=== PATIENT | female | born 1930 | race African-American/Black ===

== ENCOUNTER 2016-10-21 15:21 | Emergency (ER) | payer MEDICARE, MEDICAID ==
[~2016-10-21] VITALS: Ht 167.6 cm; Wt 59.0 kg
[~2016-10-21 15:21] MED LIST: ACET-2178 PO; AMIN30LI2 PO; BISA-81 PO; DOCU-138 PO; FERR-63 PO; LISI-604 PO; MAG-4 PO; MAGN400O4 PO; MEMA10TA11 PO; METH85CR TP; MULT-1146 PO; PROT40 PO; TRAM50TA3 PO
[2016-10-21] MEDS ORDERED: LEVETIRACETAM 500 MG in SODIUM CHLORIDE 0.9% 100 ML IV ONE (16:30)
[2016-10-21 16:52] LABS: BASOPHILS % 0.4 % (0.0-2.0); EOSINOPHILS % 1.3 % (0.0-5.0); HEMATOCRIT. 31.2 % (36.0-48.0); HEMOGLOBIN. 10.1 g/dL (12.0-16.0); MEAN CORPUSCULAR HEMOGLOBIN 28.3 pg (28.0-32.0); MEAN CORPUSCULAR VOLUME 87.6 fL (81.0-99.0); MEAN PLATELET VOLUME 7.5 fl (7.4-10.4); MONOCYTES % 12.8 % (2.0-8.0); NEUTROPHILS % 61.5 % (40.0-76.0); PLATELET 187 x1000/uL (130-400); RED BLOOD CELL COUNT 3.56 mill/uL (4.2-5.4); RED CELL DISTRIBUTION WIDTH 13.8 % (11.6-14.6)
[2016-10-21 16:54] LABS: PARTIAL THROMBOPLASTIN TIME 21.9 sec (24.0-34.0); PROTHROMBIN TIME 10.6 sec
[2016-10-21 17:03] LABS: CARBON DIOXIDE 23 mEq/L (21-32); CHLORIDE 106 mEq/L (98-107); TROPONIN I 0.03 ng/mL (0.00-0.04)
[2016-10-21] MEDS ORDERED: LEVETIRACETAM 500MG PREMIX 100 ML IV NR (18:00)
[2016-10-21 20:51] VITALS: BP 140/81
== END 2016-10-21 21:00 | disposition home or self-care (01) ==
LOC: ER 15:21
DX: G40.909 Epilepsy, unspecified, not intractable, without status epilepticus (principal); M19.90 Unspecified osteoarthritis, unspecified site; R51 Headache; K21.9 Gastro-esophageal reflux disease without esophagitis; N28.9 Disorder of kidney and ureter, unspecified; F03.90 Unspecified dementia, unspecified severity, without behavioral disturbance, psychotic disturbance, mood disturbance, and anxiety; Z86.73 Personal history of transient ischemic attack (TIA), and cerebral infarction without residual deficits; W06.XXXA Fall from bed, initial encounter; Y93.89 Activity, other specified; Y92.128 Other place in nursing home as the place of occurrence of the external cause
CPT/HCPCS: 36415; 70450; 71010; 80053; 83690; 84484; 85025; 85610; 85730; 93005; 96365; 99285; J1953; J7050

== ENCOUNTER 2018-05-16 17:39 | Inpatient (IN) | payer MEDICARE, MEDICAID ==
[~2018-05-16] VITALS: Ht 160 cm; Wt 57.6 kg
[~2018-05-16 17:39] MED LIST changes: -MAGN400O4 PO; -MEMA10TA11 PO; +MEMA10TA2 PO; +MOM PO
[2018-05-16 18:16] VITALS: BP 148/63
[2018-05-16 18:30] VITALS: BP 141/84
[2018-05-16] MEDS ORDERED: CLOP75TA33 MT (18:52)
[2018-05-16] MEDS ORDERED: LEVE250T2 MT (18:52)
[2018-05-16] MEDS ORDERED: [UNRECOGNIZED DRUG - CODE] PO (18:52)
[2018-05-16] MEDS ORDERED: FERR325T6 MT (18:52)
[2018-05-16] MEDS ORDERED: CHOL200010 MT (18:52)
[2018-05-16] MEDS ORDERED: METH85CR TP (18:52)
[2018-05-16] MEDS ORDERED: LISI2.5T47 MT (18:52)
[2018-05-16] MEDS ORDERED: FAMO20TA8 MT (18:52)
[2018-05-16] MEDS ORDERED: NA P230E RC (18:52)
[2018-05-16] MEDS ORDERED: TRAM50TA MT (18:52)
[2018-05-16] MEDS ORDERED: MOM MT (18:52)
[2018-05-16] MEDS ORDERED: DOCU-138 MT (18:52)
[2018-05-16] MEDS ORDERED: BISA10SU62 RC (18:52)
[2018-05-16] MEDS ORDERED: MEMA10TA2 MT (18:52)
[2018-05-16 20:00] VITALS: BP 122/69
[2018-05-16] MEDS ORDERED: HALOPERIDOL 2MG TABLET PO PRN (23:00)
[2018-05-16] MEDS: HALOPERIDOL LACTATE 5MG/ML VIAL IM PRN (23:05)
[2018-05-16] MEDS ORDERED: TRAMADOL HCL MT PRN (23:15)
[2018-05-16] MEDS ORDERED: MEDICATION NOT ON FORMULARY EA (Acetaminophen (Tylenol) 650 MG) PO PRN (23:15)
[2018-05-16] MEDS ORDERED: AMITRIPTYLINE 25MG TABLET PO PRN (23:15)
[2018-05-16 23:54] VITALS: BP 151/58
[2018-05-17] MEDS ORDERED: MAGNESIUM HYDROXIDE 400MG/5ML 30ML UDC PO PRN
[2018-05-17] MEDS ORDERED: NA PHOS,M-B/NA PHOS,DI-BA ENEMA 118ML PR ONE
[2018-05-17] MEDS ORDERED: BISACODYL 10MG SUPP PR PRN
[2018-05-17] MEDS ORDERED: ACETAMINOPHEN 325MG TABLET PO PRN (00:15)
[2018-05-17] MEDS ORDERED: NA PHOS,M-B/NA PHOS,DI-BA ENEMA 118ML PR PRN (00:30)
[2018-05-17] MEDS ORDERED: TRAMADOL 50MG TABLET PO PRN (00:30)
[2018-05-17] MEDS ORDERED: METHYL SALICYLATE/MENTHOL CREAM 85GM TOP PRN (01:00)
[2018-05-17] MEDS: AMITRIPTYLINE 25MG TABLET PO SCH ×2 (01:10→21:56)
[2018-05-17] MEDS: LISINOPRIL 20MG TABLET PO SCH ×2 (01:10→08:51)
[2018-05-17] MEDS: LEVETIRACETAM 250MG TABLET PO SCH ×3 (01:11→17:52)
[2018-05-17] MEDS ORDERED: ONDANSETRON HCL 4MG/2ML INJ IV PRN (02:15)
[2018-05-17] MEDS ORDERED: IPRATROPIUM/ALBUTEROL 0.5-3(2.5)MG/3ML NEB INH PRN (02:15)
[2018-05-17] MEDS ORDERED: DIPHENHYDRAMINE 50MG/ML VIAL IV PRN (02:15)
[2018-05-17] MEDS ORDERED: MAGNESIUM/ALUMINUM HYDROXIDE/SIMETHICONE 30ML UDC PO PRN (02:15)
[2018-05-17] MEDS ORDERED: GUAIFENESIN 200MG/10ML SUGAR FREE UDC PO PRN (02:15)
[2018-05-17] MEDS ORDERED: DEXT 5%/0.45% NACL 1000ML 1,000 ML IV SCH (03:00)
[2018-05-17 04:00] VITALS: BP 93/47
[2018-05-17] MEDS: PANTOPRAZOLE 40MG DR TABLET PO SCH ×2 (06:50→08:47)
[2018-05-17 08:00] VITALS: BP 121/43
[2018-05-17] MEDS: MULTIVITAMINS,THER W-MINERALS TABLET PO SCH (08:46)
[2018-05-17] MEDS: FERROUS SULFATE 325MG TABLET PO SCH (08:46)
[2018-05-17] MEDS: CLOPIDOGREL 75MG TABLET PO SCH (08:47)
[2018-05-17] MEDS: MEMANTINE HCL 10MG TABLET PO SCH (08:47)
[2018-05-17] MEDS: CHOLECALCIFEROL (D3) 1000 UNIT TABLET PO SCH (08:47)
[2018-05-17] MEDS: DOCUSATE SODIUM 100MG CAPSULE PO SCH (08:47)
[2018-05-17] MEDS ORDERED: MEDICATION NOT ON FORMULARY EA (Clopidogrel Bisulfate (Clopidogrel) 1 TAB) MT SCH (09:00)
[2018-05-17] MEDS ORDERED: FERROUS SULFATE 325MG TABLET PO SCH (09:00)
[2018-05-17] MEDS ORDERED: MEDICATION NOT ON FORMULARY EA (Pantoprazole Sodium (Protonix) 40 MG) PO SCH (09:00)
[2018-05-17] MEDS ORDERED: MEDICATION NOT ON FORMULARY EA (Ferrous Sulfate 1 TAB) MT SCH (09:00)
[2018-05-17] MEDS ORDERED: MEDICATION NOT ON FORMULARY EA (Cholecalciferol (Vitamin D3) (Vitamin D3) 1 CAP) MT SCH (09:00)
[2018-05-17] MEDS ORDERED: MEDICATION NOT ON FORMULARY EA (Docusate Sodium (Colace) 1 CAP) MT SCH (09:00)
[2018-05-17] MEDS ORDERED: MEDICATION NOT ON FORMULARY EA (Lisinopril 20 MG) PO SCH (09:00)
[2018-05-17] MEDS ORDERED: MEDICATION NOT ON FORMULARY EA (Multivitamin (Multi Vitamin Daily) 1 TAB) PO SCH (09:00)
[2018-05-17] MEDS: HALOPERIDOL 2MG TABLET PO PRN (11:01)
[2018-05-17 11:09] LABS: BASOPHILS % 0.3 % (0.0-2.0); EOSINOPHILS % 3.5 % (0.0-5.0); HEMATOCRIT. 32.3 % (36.0-48.0); HEMOGLOBIN. 10.4 g/dL (12.0-16.0); LYMPHOCYTES % 40.4 % (20.0-50.0); MEAN CORPUSCULAR VOLUME 89.6 fL (81.0-99.0); MEAN PLATELET VOLUME 7.6 fl (7.4-10.4); MONOCYTES % 14.1 % (2.0-8.0); NEUTROPHILS % 41.7 % (40.0-76.0); PLATELET 174 x1000/uL (130-400); RED CELL DISTRIBUTION WIDTH 14.5 % (11.6-14.6)
[2018-05-17 11:18] LABS: PROTHROMBIN TIME 10.3 sec (9.1-11.1)
[2018-05-17 11:23] LABS: PHOSPHORUS 3.1 mg/dL (2.5-4.9)
[2018-05-17 11:27] LABS: T4 FREE 1.01 ng/dL (0.76-1.46)
[2018-05-17 11:36] LABS: FOLIC ACID (FOLATE) SERUM >20 ng/mL ng/mL (>5.38)
[2018-05-17 11:47] LABS: VITAMIN B12 SERUM 796 pg/mL (211-911)
[2018-05-17 12:00] VITALS: BP 125/60
[2018-05-17] MEDS ORDERED: LORAZEPAM 2MG/ML CPJ IV NR (14:15)
[2018-05-17] MEDS ORDERED: SODIUM POLYSTYRENE SULFONATE 15 G/60 ML BOT PO NR (15:30)
[2018-05-17 16:00] VITALS: BP 135/50
[2018-05-17] MEDS: SODIUM CHLORIDE 0.45% 1,000 ML IV SCH (18:02)
[2018-05-17 20:00] VITALS: BP 162/62
[2018-05-18] VITALS: BP 150/57
[2018-05-18] MEDS: HALOPERIDOL 2MG TABLET PO PRN ×2 (02:47→17:27)
[2018-05-18 04:00] VITALS: BP 183/101
[2018-05-18] MEDS: SODIUM CHLORIDE 0.45% 1,000 ML IV SCH ×2 (05:19→20:58)
[2018-05-18 06:40] LABS: BASOPHILS % 0.2 % (0.0-2.0); EOSINOPHILS % 1.5 % (0.0-5.0); HEMATOCRIT. 34.2 % (36.0-48.0); HEMOGLOBIN. 10.8 g/dL (12.0-16.0); MEAN CORPUSCULAR HEMOGLOBIN 28.2 pg (28.0-32.0); MEAN CORPUSCULAR VOLUME 89.4 fL (81.0-99.0); MEAN PLATELET VOLUME 7.9 fl (7.4-10.4); NEUTROPHILS % 58.3 % (40.0-76.0); PLATELET 195 x1000/uL (130-400); RED BLOOD CELL COUNT 3.82 mill/uL (4.2-5.4); RED CELL DISTRIBUTION WIDTH 14.2 % (11.6-14.6)
[2018-05-18 06:43] LABS: CHLORIDE 108 mEq/L (98-107)
[2018-05-18 08:00] VITALS: BP 161/123
[2018-05-18] MEDS: HALOPERIDOL LACTATE 5MG/ML VIAL IM PRN (09:23)
[2018-05-18] MEDS: LISINOPRIL 20MG TABLET PO SCH (09:49)
[2018-05-18] MEDS: MEMANTINE HCL 10MG TABLET PO SCH (10:29)
[2018-05-18] MEDS: CLOPIDOGREL 75MG TABLET PO SCH (10:29)
[2018-05-18] MEDS: DOCUSATE SODIUM 100MG CAPSULE PO SCH (10:29)
[2018-05-18] MEDS: FERROUS SULFATE 325MG TABLET PO SCH (10:29)
[2018-05-18] MEDS: CHOLECALCIFEROL (D3) 1000 UNIT TABLET PO SCH (10:30)
[2018-05-18] MEDS: MULTIVITAMINS,THER W-MINERALS TABLET PO SCH (10:30)
[2018-05-18] MEDS: LEVETIRACETAM 250MG TABLET PO SCH (10:30)
[2018-05-18] MEDS: CLONIDINE 0.1MG TABLET PO PRN (10:45)
[2018-05-18 12:00] VITALS: BP 96/45
[2018-05-18 16:00] VITALS: BP 156/85
[2018-05-18 17:08] LABS: ETHANOL BLOOD < 10 mg/dL
[2018-05-18 17:14] LABS: T4 FREE 1.23 ng/dL (0.76-1.46)
[2018-05-18 20:00] VITALS: BP 159/74
[2018-05-18 20:06] LABS: CLARITY URINE CLEAR (CLEAR); COLOR URINE YELLOW (YELLOW); KETONES URINE NEGATIVE (NEGATIVE); LEUKOCYTE ESTERASE URINE TRACE (NEGATIVE); NITRITE URINE NEGATIVE (NEGATIVE); OCCULT BLOOD URINE NEGATIVE (NEGATIVE); PH URINE 6.5 (4.5-8.0); PROTEIN URINE NEGATIVE (NEGATIVE); SPECIFIC GRAVITY URINE 1.008 (1.005-1.030); UROBILINOGEN URINE 0.2 E.U./dL (0.2-1.0)
[2018-05-18 20:43] LABS: *AMPHETAMINES SCREEN URINE NEGATIVE (NEGATIVE); *BARBITURATES SCREEN URINE NEGATIVE (NEGATIVE); CANNABINOID URINE SCREEN NEGATIVE (NEGATIVE)
[2018-05-18 20:44] LABS: *BENZODIAZEPINES SCREEN URINE NEGATIVE (NEGATIVE); *COCAINE SCREEN URINE NEGATIVE (NEGATIVE); METHADONE URINE SCREEN NEGATIVE (NEGATIVE); OPIATES URINE SCREEN NEGATIVE (NEGATIVE)
[2018-05-18 20:45] LABS: PHENCYCLIDINE URINE SCREEN NEGATIVE (NEGATIVE)
[2018-05-18] MEDS: CARBAMAZEPINE 200MG TABLET PO SCH (20:57)
[2018-05-18] MEDS: AMITRIPTYLINE 25MG TABLET PO SCH (20:57)
[2018-05-19 06:22] LABS: BASOPHILS % 0.4 % (0.0-2.0); EOSINOPHILS % 3.1 % (0.0-5.0); LYMPHOCYTES % 27.1 % (20.0-50.0); MEAN CORPUSCULAR HEMOGLOBIN 28.5 pg (28.0-32.0); MEAN CORPUSCULAR VOLUME 88.8 fL (81.0-99.0); MEAN PLATELET VOLUME 7.9 fl (7.4-10.4); MONOCYTES % 13.2 % (2.0-8.0); NEUTROPHILS % 56.2 % (40.0-76.0); PLATELET 180 x1000/uL (130-400); RED BLOOD CELL COUNT 3.49 mill/uL (4.2-5.4); RED CELL DISTRIBUTION WIDTH 14.3 % (11.6-14.6)
[2018-05-19] MEDS: PANTOPRAZOLE 40MG DR TABLET PO SCH (06:35)
[2018-05-19 07:51] LABS: CHLORIDE 108 mEq/L (98-107)
[2018-05-19 08:00] VITALS: BP 181/86
[2018-05-19] MEDS: MEMANTINE HCL 10MG TABLET PO SCH (09:12)
[2018-05-19] MEDS: CARBAMAZEPINE 200MG TABLET PO SCH ×2 (09:12→21:00)
[2018-05-19] MEDS: MULTIVITAMINS,THER W-MINERALS TABLET PO SCH (09:12)
[2018-05-19] MEDS: CLOPIDOGREL 75MG TABLET PO SCH (09:12)
[2018-05-19] MEDS: CHOLECALCIFEROL (D3) 1000 UNIT TABLET PO SCH (09:12)
[2018-05-19] MEDS: FERROUS SULFATE 325MG TABLET PO SCH (09:13)
[2018-05-19] MEDS: DOCUSATE SODIUM 100MG CAPSULE PO SCH (09:13)
[2018-05-19] MEDS: LISINOPRIL 20MG TABLET PO SCH (10:12)
[2018-05-19] MEDS: SODIUM CHLORIDE 0.45% 1,000 ML IV SCH (14:59)
[2018-05-19 15:35] VITALS: BP 148/79
[2018-05-19 20:00] VITALS: BP 117/66
[2018-05-19] MEDS: AMITRIPTYLINE 25MG TABLET PO SCH (21:00)
[2018-05-20] VITALS: BP 169/85
[2018-05-20 04:00] VITALS: BP 182/81
[2018-05-20] MEDS: CLONIDINE 0.1MG TABLET PO PRN (05:05)
[2018-05-20] MEDS: PANTOPRAZOLE 40MG DR TABLET PO SCH (06:29)
[2018-05-20 06:43] LABS: CHLORIDE 106 mEq/L (98-107)
[2018-05-20 06:57] LABS: BASOPHILS % 0.3 % (0.0-2.0); HEMATOCRIT. 36.2 % (36.0-48.0); HEMOGLOBIN. 11.6 g/dL (12.0-16.0); LYMPHOCYTES % 28.7 % (20.0-50.0); MEAN CORPUSCULAR HEMOGLOBIN 28.3 pg (28.0-32.0); MEAN CORPUSCULAR VOLUME 88.6 fL (81.0-99.0); MEAN PLATELET VOLUME 7.7 fl (7.4-10.4); MONOCYTES % 12.8 % (2.0-8.0); NEUTROPHILS % 56.2 % (40.0-76.0); PLATELET 208 x1000/uL (130-400); RED BLOOD CELL COUNT 4.09 mill/uL (4.2-5.4); RED CELL DISTRIBUTION WIDTH 14.1 % (11.6-14.6)
[2018-05-20] MEDS: CLOPIDOGREL 75MG TABLET PO SCH (09:07)
[2018-05-20] MEDS: CHOLECALCIFEROL (D3) 1000 UNIT TABLET PO SCH (09:07)
[2018-05-20] MEDS: CARBAMAZEPINE 200MG TABLET PO SCH (09:08)
[2018-05-20] MEDS: MULTIVITAMINS,THER W-MINERALS TABLET PO SCH (09:08)
[2018-05-20] MEDS: FERROUS SULFATE 325MG TABLET PO SCH (09:08)
[2018-05-20] MEDS: DOCUSATE SODIUM 100MG CAPSULE PO SCH (09:08)
[2018-05-20] MEDS: MEMANTINE HCL 10MG TABLET PO SCH (09:08)
[2018-05-20] MEDS: LISINOPRIL 20MG TABLET PO SCH (09:19)
[2018-05-20 12:00] VITALS: BP 148/78
[2018-05-20 16:00] VITALS: BP 123/61
[2018-05-20 17:31] VITALS: BP 123/61
[2018-05-20 20:00] VITALS: BP 152/81
[2018-05-20] MEDS ORDERED: AMLODIPINE 5MG TABLET PO SCH (21:00)
[2018-05-20] MEDS ORDERED: LISINOPRIL 20MG TABLET PO SCH (21:00)
== END 2018-05-20 22:10 | DRG 682 ==
LOC: 6EST 17:39
PROVIDERS: ADMIT Family Medicine Adult Medicine; ATTEND Family Medicine Adult Medicine
PROC: 4A00X4Z Measurement of Central Nervous Electrical Activity, External Approach (ICD-10-PCS; principal; 2018-05-19)
DX: N17.0 Acute kidney failure with tubular necrosis (principal); G92 Toxic encephalopathy; F03.91 Unspecified dementia, unspecified severity, with behavioral disturbance; E44.1 Mild protein-calorie malnutrition; N18.9 Chronic kidney disease, unspecified; G40.909 Epilepsy, unspecified, not intractable, without status epilepticus; I12.9 Hypertensive chronic kidney disease with stage 1 through stage 4 chronic kidney disease, or unspecified chronic kidney disease; D63.8 Anemia in other chronic diseases classified elsewhere; D50.0 Iron deficiency anemia secondary to blood loss (chronic); I34.0 Nonrheumatic mitral (valve) insufficiency; E86.0 Dehydration; E87.5 Hyperkalemia; E11.22 Type 2 diabetes mellitus with diabetic chronic kidney disease; R62.7 Adult failure to thrive; K21.9 Gastro-esophageal reflux disease without esophagitis; R74.8 Abnormal levels of other serum enzymes; M19.90 Unspecified osteoarthritis, unspecified site; W06.XXXA Fall from bed, initial encounter; Y92.092 Bedroom in other non-institutional residence as the place of occurrence of the external cause; Y93.89 Activity, other specified; Z86.73 Personal history of transient ischemic attack (TIA), and cerebral infarction without residual deficits; Y99.8 Other external cause status; Z68.22 Body mass index [BMI] 22.0-22.9, adult
CPT/HCPCS: 36415; 70551; 71045; 76770; 80048; 80061; 80076; 80305; 82040; 82140; 82542; 82550; 82570; 82607; 82746; 83036; 83735; 83880; 83930; 84100; 84300; 84439; 84443; 84481; 84484; 92610; 93005; 93306; 93880; 93970; 97162; J1630; J2060

== ENCOUNTER 2018-08-03 14:29 | Inpatient (IN) | payer MEDICARE, MEDICAID ==
[~2018-08-03] VITALS: Ht 152.4 cm; Wt 46.7 kg
[~2018-08-03 14:29] MED LIST changes: +BISA10SU62 RC; +CHOL200010 MT; +CLOP75TA33 MT; +DOCU-138 MT; +FAMO20TA8 MT; +FERR325T6 MT; +LEVE250T2 MT; +LISI2.5T47 MT; +MEMA10TA2 MT; +MOM MT; +NA P230E RC; +TRAM50TA MT; +[UNRECOGNIZED DRUG - CODE] PO
[2018-08-03] MEDS ORDERED: LEVETIRACETAM 1000MG/100ML 100 ML IV ONE (15:00)
[2018-08-03 15:19] LABS: BASOPHILS % 0.6 % (0.0-2.0); EOSINOPHILS % 3.3 % (0.0-5.0); HEMATOCRIT. 27.8 % (36.0-48.0); HEMOGLOBIN. 9.1 g/dL (12.0-16.0); LYMPHOCYTES % 23.2 % (20.0-50.0); MEAN CORPUSCULAR HEMOGLOBIN 28.8 pg (28.0-32.0); MEAN PLATELET VOLUME 8.1 fl (7.4-10.4); MONOCYTES % 6.9 % (2.0-8.0); PLATELET 309 x1000/uL (130-400); RED BLOOD CELL COUNT 3.16 mill/uL (4.2-5.4); RED CELL DISTRIBUTION WIDTH 15.4 % (11.6-14.6)
[2018-08-03 15:21] LABS: CHLORIDE 107 mEq/L (98-107)
[2018-08-03 15:22] LABS: PARTIAL THROMBOPLASTIN TIME 20.8 sec (23.4-31.0); PROTHROMBIN TIME 10.3 sec (9.6-11.0)
[2018-08-03 15:30] LABS: CREATINE KINASE 344 IU/L (26-192)
[2018-08-03 16:49] LABS: CLARITY URINE CLEAR (CLEAR); COLOR URINE YELLOW (YELLOW); KETONES URINE NEGATIVE (NEGATIVE); LEUKOCYTE ESTERASE URINE NEGATIVE (NEGATIVE); NITRITE URINE NEGATIVE (NEGATIVE); OCCULT BLOOD URINE NEGATIVE (NEGATIVE); PH URINE 5.5 (4.5-8.0); PROTEIN URINE NEGATIVE (NEGATIVE); SPECIFIC GRAVITY URINE 1.015 (1.005-1.030); UROBILINOGEN URINE 0.2 E.U./dL (0.2-1.0)
[2018-08-03] MEDS ORDERED: FUROSEMIDE 20MG/2ML VIAL IVP ONE (17:00)
[2018-08-03] MEDS ORDERED: IPRATROPIUM/ALBUTEROL 0.5-3(2.5)MG/3ML NEB INH PRN (18:00)
[2018-08-03] MEDS ORDERED: HYDROCODONE/ACETAMINOPHEN 5/325MG TABLET PO PRN (18:00)
[2018-08-03] MEDS ORDERED: MAGNESIUM/ALUMINUM HYDROXIDE/SIMETHICONE 30ML UDC PO PRN (18:00)
[2018-08-03] MEDS ORDERED: CLONIDINE 0.1MG TABLET PO PRN (18:00)
[2018-08-03] MEDS ORDERED: ACETAMINOPHEN 325MG TABLET PO PRN (18:00)
[2018-08-03] MEDS ORDERED: DIPHENHYDRAMINE 50MG/ML VIAL IV PRN (18:00)
[2018-08-03] MEDS ORDERED: GUAIFENESIN 200MG/10ML SUGAR FREE UDC PO PRN (18:00)
[2018-08-03] MEDS ORDERED: ONDANSETRON HCL 4MG/2ML INJ IV PRN (18:00)
[2018-08-03] MEDS ORDERED: DOCUSATE SODIUM 100MG CAPSULE PO PRN (18:00)
[2018-08-03 18:47] LABS: PHOSPHORUS 3.4 mg/dL (2.5-4.9)
[2018-08-03] MEDS: LORAZEPAM 2MG/ML CPJ IV PRN (20:24)
[2018-08-03 20:55] VITALS: BP 134/56
[2018-08-03] MEDS: DEXT 5%/0.45% NACL 1000ML 1,000 ML IV SCH (23:38)
[2018-08-04] VITALS: BP 158/82
[2018-08-04] MEDS ORDERED: SODIUM POLYSTYRENE SULFONATE 15 G/60 ML BOT PO NR
[2018-08-04 04:00] VITALS: BP 147/86
[2018-08-04 06:52] LABS: BASOPHILS % 0.7 % (0.0-2.0); EOSINOPHILS % 4.2 % (0.0-5.0); HEMATOCRIT. 25.8 % (36.0-48.0); HEMOGLOBIN. 8.4 g/dL (12.0-16.0); LYMPHOCYTES % 19.3 % (20.0-50.0); MEAN CORPUSCULAR HEMOGLOBIN 28.3 pg (28.0-32.0); MEAN PLATELET VOLUME 7.2 fl (7.4-10.4); MONOCYTES % 9.1 % (2.0-8.0); NEUTROPHILS % 66.7 % (40.0-76.0); PLATELET 252 x1000/uL (130-400); RED BLOOD CELL COUNT 2.97 mill/uL (4.2-5.4); RED CELL DISTRIBUTION WIDTH 15.4 % (11.6-14.6)
[2018-08-04 07:47] LABS: CHLORIDE 111 mEq/L (98-107)
[2018-08-04 07:59] LABS: HDL CHOLESTEROL 66 mg/dL (40-59); LDL CHOLESTEROL 119 mg/dL (5-100)
[2018-08-04 08:00] VITALS: BP 132/73
[2018-08-04 08:04] LABS: CREATINE KINASE 292 IU/L (26-192)
[2018-08-04] MEDS: AMLODIPINE 2.5MG TABLET PO SCH ×2 (08:27→22:01)
[2018-08-04] MEDS: CARBAMAZEPINE 200MG TABLET PO SCH ×2 (08:28→22:01)
[2018-08-04 12:00] VITALS: BP 117/52
[2018-08-04 16:00] VITALS: BP 130/74
[2018-08-04 20:00] VITALS: BP 128/69
[2018-08-04] MEDS: LORAZEPAM 2MG/ML CPJ IV PRN (21:59)
[2018-08-05] VITALS: BP 121/76
[2018-08-05] MEDS: LORAZEPAM 2MG/ML CPJ IV PRN (02:47)
[2018-08-05 04:00] VITALS: BP 138/56
[2018-08-05 07:09] LABS: BASOPHILS % 0.4 % (0.0-2.0); EOSINOPHILS % 3.6 % (0.0-5.0); HEMOGLOBIN. 8.7 g/dL (12.0-16.0); LYMPHOCYTES % 21.2 % (20.0-50.0); MEAN CORPUSCULAR HEMOGLOBIN 28.4 pg (28.0-32.0); MEAN CORPUSCULAR VOLUME 87.9 fL (81.0-99.0); MEAN PLATELET VOLUME 7.2 fl (7.4-10.4); MONOCYTES % 9.9 % (2.0-8.0); NEUTROPHILS % 64.9 % (40.0-76.0); PLATELET 265 x1000/uL (130-400); RED BLOOD CELL COUNT 3.07 mill/uL (4.2-5.4); RED CELL DISTRIBUTION WIDTH 15.2 % (11.6-14.6)
[2018-08-05 07:25] LABS: CHLORIDE 107 mEq/L (98-107)
[2018-08-05] MEDS: AMLODIPINE 2.5MG TABLET PO SCH (08:41)
[2018-08-05] MEDS: CARBAMAZEPINE 200MG TABLET PO SCH ×2 (08:41→21:22)
[2018-08-05 12:00] VITALS: BP 122/56
[2018-08-05] MEDS ORDERED: POTASSIUM CHLORIDE 20MEQ/PACKET PO NR (12:30)
[2018-08-05 16:00] VITALS: BP 149/66
[2018-08-05 20:00] VITALS: BP 116/72
[2018-08-05] MEDS: LISINOPRIL 20MG TABLET PO SCH (21:22)
[2018-08-05] MEDS: AMLODIPINE 5MG TABLET PO SCH (21:23)
[2018-08-05] MEDS: DEXT 5%/0.45% NACL 1000ML 1,000 ML IV SCH (21:24)
[2018-08-06] VITALS: BP 119/71
[2018-08-06 04:00] VITALS: BP 154/84
[2018-08-06 06:22] LABS: BASOPHILS % 0.6 % (0.0-2.0); HEMATOCRIT. 28.5 % (36.0-48.0); HEMOGLOBIN. 9.3 g/dL (12.0-16.0); LYMPHOCYTES % 18.5 % (20.0-50.0); MEAN CORPUSCULAR HEMOGLOBIN 28.3 pg (28.0-32.0); MEAN CORPUSCULAR VOLUME 87.1 fL (81.0-99.0); MONOCYTES % 8.4 % (2.0-8.0); NEUTROPHILS % 69.5 % (40.0-76.0); PLATELET 263 x1000/uL (130-400); RED BLOOD CELL COUNT 3.27 mill/uL (4.2-5.4); RED CELL DISTRIBUTION WIDTH 15.4 % (11.6-14.6)
[2018-08-06 07:40] LABS: CHLORIDE 108 mEq/L (98-107)
[2018-08-06 08:00] VITALS: BP 156/58
[2018-08-06] MEDS ORDERED: CLOPIDOGREL 75MG TABLET PO SCH (09:00)
[2018-08-06] MEDS ORDERED: MEMANTINE HCL 10MG TABLET PO SCH (09:00)
[2018-08-06] MEDS: CARBAMAZEPINE 200MG TABLET PO SCH (09:56)
[2018-08-06] MEDS: AMLODIPINE 5MG TABLET PO SCH (09:56)
[2018-08-06 12:00] VITALS: BP 115/75
[2018-08-06] MEDS: LISINOPRIL 20MG TABLET PO SCH (14:35)
[2018-08-06 15:07] VITALS: BP_SYST 115; BP_SYST 138; BP_DIAS 51; BP_DIAS 75
[2018-08-06] MEDS ORDERED: AMLO5TAB88 MT (17:02)
[2018-08-06] MEDS ORDERED: CARB200T MT ×3 (17:03→17:06)
== END 2018-08-06 19:43 | DRG 101 ==
LOC: ER 14:34 → 8WST 16:12 → EDBEDREQ 16:17 → ENRESERV 20:06
PROVIDERS: ADMIT Family Medicine Adult Medicine; ATTEND Family Medicine Adult Medicine
PROC: 0HQ1XZZ Repair Face Skin, External Approach (ICD-10-PCS; principal; 2018-08-03)
DX: G40.409 Other generalized epilepsy and epileptic syndromes, not intractable, without status epilepticus (principal); E44.1 Mild protein-calorie malnutrition; G93.40 Encephalopathy, unspecified; E87.5 Hyperkalemia; N18.9 Chronic kidney disease, unspecified; R62.7 Adult failure to thrive; E11.22 Type 2 diabetes mellitus with diabetic chronic kidney disease; E78.00 Pure hypercholesterolemia, unspecified; E78.5 Hyperlipidemia, unspecified; E87.6 Hypokalemia; F41.9 Anxiety disorder, unspecified; I25.10 Atherosclerotic heart disease of native coronary artery without angina pectoris; K21.9 Gastro-esophageal reflux disease without esophagitis; F03.90 Unspecified dementia, unspecified severity, without behavioral disturbance, psychotic disturbance, mood disturbance, and anxiety; M19.90 Unspecified osteoarthritis, unspecified site; D64.9 Anemia, unspecified; I34.0 Nonrheumatic mitral (valve) insufficiency; S01.81XA Laceration without foreign body of other part of head, initial encounter; W18.39XA Other fall on same level, initial encounter; E86.0 Dehydration; I13.10 Hypertensive heart and chronic kidney disease without heart failure, with stage 1 through stage 4 chronic kidney disease, or unspecified chronic kidney disease; Z79.02 Long term (current) use of antithrombotics/antiplatelets; Z86.73 Personal history of transient ischemic attack (TIA), and cerebral infarction without residual deficits; Z79.899 Other long term (current) drug therapy; Z79.01 Long term (current) use of anticoagulants; Y93.89 Activity, other specified; Y92.89 Other specified places as the place of occurrence of the external cause; Y99.8 Other external cause status; Z68.20 Body mass index [BMI] 20.0-20.9, adult
CPT/HCPCS: 36415; 70551; 71045; 72170; 80048; 80061; 82270; 82542; 82550; 83735; 83880; 84100; 84146; 84443; 84484; 86850; 86900; 92610; 93005; 93306; 93970; 96374; 96375; 97110; 97162; 97165; 99285; J1200; J1940; J1953; J2060